=== PATIENT | female | born 1960 ===

== ENCOUNTER → 2018-02-09 | Day surgery (SDC) | payer OTHER ==
[~2018-02-09] MED LIST: IV RINGERS,LACTATED 1000ML 1,000 ML IV SCH; LEVO200T PO; LIDOCAINE 1% PF 2 ML VIAL. ID PRN; LIDOCAINE 1% PF 2 ML VIAL. ONE; MIDAZOLAM HCL/PF 2 MG/2 ML VIAL. IV PRN; PROPOFOL 20 ML IV ONE; fentaNYL PF VIAL 100 MCG/2 ML VIAL IV PRN
[2018-02-09 08:26] VITALS: BP 127/68
--- NOTE | 2018-02-12 23:07 | PATHOLOGY ---
[facility] Accession Number: [id number] . 01 Material submitted: . PART A: DUODENAL BIOPSY PART B: BIOPSY DISTAL ESOPHAGUS . 01 Clinical history: . Dysphagia, abnormal liver enzymes . 02 Diagnosis: A. "Duodenal BX rule out celiac", biopsy: - Small bowel/duodenal mucosa with minimal histologic alterations; no evidence of celiac sprue. . B. "BX distal esophagus", biopsy: - Esophageal squamous mucosa and gastric cardiac type mucosa with mild reactive changes and mild acute and chronic inflammation; no intestinal metaplasia or dysplasia seen. . (CLW:at;02/12/2018) QTA/02/12/2018 . 02 Electronically signed: . Priscilla Herrera MD, Pathologist NPI- [id number] . 01 Gross description: . A. Received in formalin labeled "Tony Diana, duodenal BX, rule out celiac," are multiple segments of blas soft tissue measuring 1.5 x 0.5 x 0.2 cm in aggregate dimensions. The specimen is filtered and entirely submitted in cassette A1. . B. Received in formalin labeled "Tony, Diana, BX distal esophagus," are 3 segments of blas soft tissue measuring 0.9 x 0.6 x 0.2 cm in aggregate dimensions and ranging from 0.2 to 0.3 cm in maximum dimension. The specimen is submitted entirely in cassette B1. (TSD; 02/09/2018) TOB/TOB . 02 Pathologist provided ICD-10: K20.9, R13.10 . 02 CPT . 128966, 037605 Specimen Comment: A courtesy copy of this report has been sent to Specimen Comment: [phone]. Specimen Comment: Report sent to Performed at: [id number] [facility] [address], [place], [place] [id number] MD Tato Harris MD Phone: [phone] Performed at: [address] [id number] MD Abraham Douglas MD Phone: [phone]
== END | disposition home or self-care (01) ==
LOC: ENDOS 06:43
PROVIDERS: ATTEND Internal Medicine Gastroenterology
DX: K22.2 Esophageal obstruction (principal); K21.0 Gastro-esophageal reflux disease with esophagitis; K31.89 Other diseases of stomach and duodenum; Z72.89 Other problems related to lifestyle; Z88.8 Allergy status to other drugs, medicaments and biological substances; M19.90 Unspecified osteoarthritis, unspecified site; Z85.850 Personal history of malignant neoplasm of thyroid; M79.7 Fibromyalgia; Z79.899 Other long term (current) drug therapy; Z90.49 Acquired absence of other specified parts of digestive tract; Z98.890 Other specified postprocedural states
CPT/HCPCS: 43239; 43450; J2704; 88305

== ENCOUNTER → 2020-08-20 | Day surgery (SDC) | payer OTHER ==
[~2020-08-20] VITALS: Ht 185.4 cm; Wt 88.0 kg
[~2020-08-20] MED LIST changes: +CHOL10004 PO; -LIDOCAINE 1% PF 2 ML VIAL. ID PRN; -LIDOCAINE 1% PF 2 ML VIAL. ONE; -MIDAZOLAM HCL/PF 2 MG/2 ML VIAL. IV PRN; +OTC ALLERGY MED; -PROPOFOL 20 ML IV ONE; -fentaNYL PF VIAL 100 MCG/2 ML VIAL IV PRN
[2020-08-20 12:13] VITALS: BP 139/65
[2020-08-20 14:12] VITALS: BP 99/66
--- NOTE | 2020-08-24 19:08 | PATHOLOGY ---
[facility] Accession Number: [id number] . 01 Material submitted: . esophagus - DISTAL ESOPHAGEAL BX. Modifiers: distal . 01 Clinical history: . R/O ABDULLAHI'S ESOPHAGUS . 02 Diagnosis: Esophageal biopsies, distal esophagus: - Segment of mildly hyperplastic squamous esophageal mucosa and segments of gastric mucosa showing chronic inflammation. 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 02 Comment: Sections of the distal esophageal biopsy reveal a single segment of mildly hyperplastic squamous esophageal mucosa, and several segments of gastric mucosa showing mild to focal moderate chronic inflammation. There is no evidence of Abdullahi's change, dysplasia, or malignancy. 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 02 Electronically signed: . Abraham Douglas MD, Pathologist NPI- [id number] . 01 Gross description: . The specimen is received in formalin, labeled "Tony, Diana", "distal esophageal biopsy rule out Abdullahi's". Received are multiple segments of pale white-blas soft tissue, ranging in size from 0.2 cm to 0.3 cm. The specimen is entirely submitted in cassette A1.(SNA; 08/21/2020) JUAREZ/BE 08/21/2020 0846 Local . 02 Pathologist provided ICD-10: K29.50 . 02 CPT . 450157 Specimen Comment: A courtesy copy of this report has been sent to [phone] Specimen Comment: [phone] Specimen Comment: Report sent to / DR ALEXANDRE Performed at: [address], [place], [place] [id number] MD Gerardo Gustafson MD Phone: [phone] Performed at: 02 [facility] [address] [place], [place] [id number] MD Abraham Douglas MD Phone: [phone]
== END | disposition home or self-care (01) ==
LOC: SURG 11:24
PROVIDERS: ATTEND Internal Medicine Gastroenterology
DX: R19.4 Change in bowel habit (principal); K64.0 First degree hemorrhoids; R13.10 Dysphagia, unspecified; K29.50 Unspecified chronic gastritis without bleeding; K31.89 Other diseases of stomach and duodenum; E03.9 Hypothyroidism, unspecified; M19.90 Unspecified osteoarthritis, unspecified site; N18.9 Chronic kidney disease, unspecified; Z90.49 Acquired absence of other specified parts of digestive tract; Z98.890 Other specified postprocedural states; Z79.899 Other long term (current) drug therapy; Z88.8 Allergy status to other drugs, medicaments and biological substances; Z20.822 Contact with and (suspected) exposure to COVID-19
CPT/HCPCS: 43239; 43450; 45378; 87426; 88305

== ENCOUNTER → 2020-08-28 | Outpatient (CLI) | payer OTHER ==
[2020-08-20 14:12] VITALS: BP 99/66
[~2020-08-28] MED LIST changes: +CONTRAST GIVEN. MC PRN; -IV RINGERS,LACTATED 1000ML 1,000 ML IV SCH
[2020-08-28] MEDS: IOHEXOL 300 MG/ML 100ML VIAL. IV ONE ×2 (09:15→09:36)
[2020-08-28] MEDS: IOHEXOL 240 MG/ML 50ML VIAL. PO ONE (09:15)
--- NOTE | 2020-08-28 13:28 | RAD ---
Exam Date: 08/28/2020 9:[address] ENTEROGRAPHY Indication: Reason: abd pain , fatigue / Spl. Instructions: omni 300 75ml 1300ml volumen / History : TECHNIQUE: CT enterography of the abdomen and pelvis was performed following the administration of o ral and nonionic intravenous contrast. Volumen oral contrast was administered. One or more of the fol lowing dose reduction techniques were utilized: *Automated exposure control (AEC) *Adjustment of mA and/or kV according to patient size *Use of iterative reconstruction technique *CT scan done according to ALARA, or ALARA/IMAGE GENTLY COMPARISON: April 01, 2019 FINDINGS: The visualized lung bases are clear. There is a small hiatal hernia. The duodenal sweep is not seen to cross the midline and appears to be entirely in the right abdomen, with the ligament of Treitz in the right abdomen, findings which can be seen with malrotation. In addition, loops of small bowel are predominantly in the right abdomen or the midline, with no loops of small bowel in the left abdomen, further supporting a diagnosis of mal rotation. Postoperative changes of right hemicolectomy are noted. There is no bowel obstruction or inflammation . Status post cholecystectomy. The liver, spleen, pancreas, adrenal glands and kidneys are normal. Urinary bladder is normal in appearance. No significant atherosclerotic calcifications are seen. No lymphadenopathy or ascites is seen. Degenerative changes are seen in the spine. IMPRESSION: No bowel obstruction or inflammation. Postoperative changes of right hemicolectomy are noted. There a re findings suggestive of bowel malrotation. See above for details. Electronically signed by: Saqib Mccullough MD (08/28/2020 1:25 PM) [facility]
== END ==
LOC: CT 10:14
PROVIDERS: ATTEND Internal Medicine Gastroenterology
DX: K50.90 Crohn's disease, unspecified, without complications (principal); K44.9 Diaphragmatic hernia without obstruction or gangrene; R53.83 Other fatigue; Z90.49 Acquired absence of other specified parts of digestive tract
CPT/HCPCS: 74170; Q9967

== ENCOUNTER → 2020-10-21 | Outpatient (CLI) | payer OTHER ==
[2020-08-20 14:12] VITALS: BP 99/66
[~2020-10-21] MED LIST changes: -CONTRAST GIVEN. MC PRN
--- NOTE | 2020-10-21 16:02 | KCIC ---
EXAMINATION: MRI LEFT LOWER EXTREMITY JOINT WITHOUT INDICATIONS: Left knee pain, chronic for years. Pain is all over but mostly lateral.. TECHNIQUE: Multiplanar multisequence MRI of the left knee was obtained without contrast. COMPARISON: Left knee radiograph 06/15/2020 FINDINGS: MENISCI: The medial and lateral menisci are intact. LIGAMENTS: There is mucoid degeneration of the anterior cruciate ligament. Posterior cruciate ligame nt is intact. Medial collateral ligament and lateral collateral ligament complex are intact. EXTENSOR MECHANISM: The quadriceps tendon is intact. Mild thickening of the distal patellar tendon w ith enthesopathy at the tibial tubercle. Fat pads are normal. Retinacula are intact. BONES AND CARTILAGE: No acute fracture. Marrow signal is normal. There is superficial partial-thickn ess cartilage loss with some deep fissures at the median ridge and inner lateral patellar facet. Troc hlear cartilage is intact. Medial and lateral compartment cartilage is grossly intact. OTHER: Complex multilobulated Rain cyst measuring approximately 6.0 x 2.5 x 1.0 cm (CC by a transve rse by AP). No joint effusion. The muscles and remaining tendons are intact. Mild prepatellar edema. IMPRESSION: 1. No meniscal or ligamentous injury. 2. Mild cartilage loss in the patellofemoral compartment. 3. Large complex Rain cyst. Electronically signed by: Miryam Flynn MD (10/21/2020 4:00 PM) [id number]
== END ==
LOC: KCIC MRI 08:18
PROVIDERS: ATTEND Physician Assistant
DX: M17.12 Unilateral primary osteoarthritis, left knee (principal); M71.22 Synovial cyst of popliteal space [Baker], left knee
CPT/HCPCS: 73721